=== PATIENT | female | born 1945 | race Caucasian/White ===

== ENCOUNTER 2016-11-26 11:46 | Outpatient (CLI) | payer MEDICARE, OTHER ==
--- NOTE | 2016-11-27 17:09 | Mammography Report ---
DIGITAL SCREENING MAMMOGRAM: 11/26/2016 CLINICAL INDICATION: A 71-year-old with personal history of left breast cancer status post mastectom y, history of right augmentation for screening. TECHNIQUE: Right CC, MLO, implant displaced views were obtained. COMPARISON: 11/2012, 12/2011, 01/2011, 10/2007. The right breast again demonstrates heterogeneously dense fibroglandular parenchyma. Coarse, typical ly benign calcifications are present. Right subpectoral implant is stable. No suspicious masses, cl ustered microcalcifications, or regions of architectural distortion are identified. IMPRESSION: BENIGN FINDINGS. RECOMMENDATION: ROUTINE ANNUAL SCREENING UNLESS OTHERWISE CLINICALLY INDICATED. BIRADS CATEGORY: 2, BENIGN FINDINGS. STANDARD QUALIFYING STATEMENTS 1. This examination was reviewed with the aid of Computed-Aided Detection (CAD). 2. A negative or benign imaging report should not delay biopsy if clinically suspicious findings are present. Consider surgical consultation if warranted. More than 5% of cancers are not identified b y imaging. 3. Dense breasts may obscure an underlying neoplasm. JOB #: [id number] EXT JOB #:[id number]
== END 2016-11-26 11:47 | disposition home or self-care (01) ==
LOC: DI 11:46
PROVIDERS: ATTEND Family Medicine
DX: Z12.31 Encounter for screening mammogram for malignant neoplasm of breast (principal); Z90.12 Acquired absence of left breast and nipple
CPT/HCPCS: 77067

== ENCOUNTER 2020-12-27 14:53 | Outpatient (CLI) | payer MEDICARE, OTHER ==
--- NOTE | 2020-12-31 10:26 | Mammography Report ---
UNILATERAL RIGHT DIGITAL SCREENING MAMMOGRAM 3D/2D - LEFT BREAST POST MASTECTOMY WITHOUT RECONSTRUCTI ON WITH AUGMENTATION: 12/27/2020 CLINICAL: Routine screening. Personal history of left breast cancer. Comparison is made to exams dated: 11/26/2016 mammogram, 02/15/2013 mammogram, 01/14/2012 mammogram, and 01/16/2011 mammogram - [facility]. The tissue of right breast is heterogeneous ly dense. This may lower the sensitivity of mammography. Right breast implant is stable and intact. There are benign calcifications in the right breast. No significant masses, calcifications, or other findings are seen in the breast. There has been no significant interval change. IMPRESSION: BENIGN There is no mammographic evidence of malignancy. A 1 year screening mammogram is recommended. This exam was interpreted at Station ID: [id number]. NOTE: For mammograms, a report in lay terms will be sent to the patient. Approximately 15% of breast malignancies will not be visualized mammographically. In the management of a palpable breast mass, a negative mammogram must not discourage biopsy of a clinically suspicious lesion. Electronically Signed By: Shelbi lemus/cecilio:12/28/2020 14:09:26 ACR BI-RADS Category 2: Benign Finding(s) 3342F PARENCHYMAL PATTERN: (D) - The breast(s) demonstrate(s) heterogeneously dense fibroglandular reddy callahan. BI-RADS CATEGORY: (2) - 2 RECOMMENDATION: (ANNUAL) - Recommend routine annual screening mammography. [id number] 1 year screening LATERALITY: (B)
== END 2020-12-27 14:54 | disposition home or self-care (01) ==
LOC: DI.N 14:53
DX: Z12.31 Encounter for screening mammogram for malignant neoplasm of breast (principal); Z85.3 Personal history of malignant neoplasm of breast; Z90.12 Acquired absence of left breast and nipple

== ENCOUNTER 2021-04-24 10:12 | Outpatient (CLI) | payer MEDICARE, OTHER | END 2021-04-24 10:13 | disposition home or self-care (01) | LOC: DI 10:12 | PROVIDERS: ATTEND Family Medicine | DX: I20.9 Angina pectoris, unspecified (principal); I51.7 Cardiomegaly; K76.89 Other specified diseases of liver | CPT/HCPCS: 93306 ==

== ENCOUNTER 2021-05-15 12:34 | Outpatient (CLI) | payer MEDICARE, OTHER ==
--- NOTE | 2021-05-15 14:41 | CT Report ---
PROCEDURE: CT brain without contrast INDICATIONS: 75-year-old female status post ground level fall 3 weeks ago. Headaches. TECHNIQUE: Noncontrast 4.5 mm thick angled axial sections acquired from the foramen magnum to the vertex. For r adiation dose reduction, the following was used: automated exposure control, adjustment of mA and/or kV according to patient size. COMPARISON: None. FINDINGS: Image quality: Excellent. CSF spaces: Basal cisterns are patent. No extra-axial fluid collections. Ventricles are normal in size and shape. Brain: Cerebral and cerebellar volume loss with mild multifocal white matter chronic ischemic change noted. No intracranial hemorrhage or mass effect. Vascular calcification noted in the cavernous sinus of both ICA Skull and face: Calvarium and visualized facial bones are intact, without suspicious lesions. Sinuses: Visualized sinuses and mastoids are clear. IMPRESSION: 1. Atrophy and chronic ischemic change without acute hemorrhage or mass effect Reviewed by: Ron Linn MD on 05/15/2021 1:39 PM JENNIFER Approved by: Ron Linn MD on 05/15/2021 1:39 PM AKDT Station ID: [id number]
== END 2021-05-15 12:35 | disposition home or self-care (01) ==
LOC: DI 12:34
PROVIDERS: ATTEND Student in an Organized Health Care Education/Training Program
DX: G44.309 Post-traumatic headache, unspecified, not intractable (principal); R42 Dizziness and giddiness; G31.89 Other specified degenerative diseases of nervous system; I67.82 Cerebral ischemia

== ENCOUNTER 2021-06-06 07:56 | Outpatient (CLI) | payer MEDICARE, OTHER ==
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
== END 2021-06-06 07:57 | disposition home or self-care (01) ==
LOC: DI 07:56
PROVIDERS: ATTEND Student in an Organized Health Care Education/Training Program
DX: R06.00 Dyspnea, unspecified (principal); E78.5 Hyperlipidemia, unspecified; I10 Essential (primary) hypertension
CPT/HCPCS: 93016; 93017; 93018

== ENCOUNTER 2021-06-13 09:52 | Outpatient (CLI) | payer MEDICARE, OTHER ==
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
--- NOTE | 2021-06-13 16:16 | Nuclear Medicine Report ---
PROCEDURE: Rest and exercise myocardial perfusion SPECT with gated imaging and ejection fraction INDICATIONS: DIZZINESS RADIOPHARMACEUTICAL: 11.8 mCi Tc-99m Myoview IV at rest and 36.9 mCi Tc-99m Myoview IV at peak exerc ise. [id number] was performed. TECHNIQUE: Radiopharmaceutical was injected at peak stress test, and also at rest. SPECT images wer e obtained. SPECT myocardial perfusion images were displayed in short axis, horizontal long axis, an d vertical long axis views. Gated images were reviewed using Auto[employer] software. COMPARISON: None available. FINDINGS: Raw data: There is good myocardial labeling by radiotracer. No significant motion artifacts. Lung- to-heart ratio is 0.21 (normal is less than 0.46 for tetrafosmin tracer). Left ventricle function: Gated images demonstrate normal left ventricle wall thickening. No segment al wall motion abnormality. No transient ischemic dilation; TID is 0.91 (normal less than 1.30). Th e left ventricle resting end-diastolic volume is 41 mL. Left ventricle stress ejection fraction is 9 9%; normal values are above 45%. Myocardial perfusion: There is a small, fixed perfusion defect in the anterior wall. The fixed perfu tammy defect in the anterior wall does not normal limits in the prone position. Fixed perfusion defect is compatible with an area of prior infarction. There is a small reversible perfusion defect in the anterior wall adjacent to the fixed perfusion defect compatible with small area of mild reversible is chemia. IMPRESSION: 1. 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 2. Normal left ventricular function with no segmental wall motion abnormalities and normal stress LVE F of 99%. PQRS ATTESTATIONS: Measure 322 - Is this imaging test primarily performed on a low-risk surgery patient for preoperative evaluation within 30 days preceding their low-risk non-cardiac surgery? Low-risk surgery is defined as cardiac or myocardial infarction less than 1%, including (but not limited to) endoscopic pr ocedures, superficial procedures, cataract surgery, and excisional breast surgery: Answer: No Measure 323 - Is this imaging test performed primarily for the monitoring of an asymptomatic patient who had percutaneous coronary intervention on the visit date or within 2 years of the visit date? An swer: No Measure 324 - Is this imaging test performed primarily for the initial detection and risk assessment on an asymptomatic, low coronary heart disease patient? Low CHD risk definition = clinicians should consider the maximum number of available patient factors used to estimate risk based on [place] (A TP III criteria), typically age, gender, diabetes, smoking status, and use of blood pressure medicati on, and integrate age appropriate estimates for missing elements, such as LDL or standard blood press ure. Answer: No Reviewed by: Kassandra Segura MD, PhD on 06/13/2021 4:15 PM PDT Approved by: Kassandra Segura MD, PhD on 06/13/2021 4:15 PM PDT Station ID: [id number]
== END 2021-06-13 09:53 | disposition home or self-care (01) ==
LOC: DI 09:52
PROVIDERS: ATTEND Student in an Organized Health Care Education/Training Program
DX: R42 Dizziness and giddiness (principal); R94.39 Abnormal result of other cardiovascular function study; I25.2 Old myocardial infarction; I11.9 Hypertensive heart disease without heart failure; E78.5 Hyperlipidemia, unspecified
CPT/HCPCS: 78452; 93017; A9500; 93016; 93018